=== PATIENT | female | born 1940 | race Caucasian/White ===

== ENCOUNTER → 2018-09-16 | Outpatient (CLI) | payer MEDICARE ==
[2017-12-05 11:00] VITALS: BP 178/65
[~2018-09-16] MED LIST: ACET325T16 PO; ALBU2.5V5 NEB; ASPI-482 PO; ASPI325T11 PO; ATOR20TA58 PO; BUDE3CAP15 PO; Bisacodyl PR; CA C1TAB58 PO; CARV3.1210 PO; CHOL200074 PO; CHROMIUM PICO200 MCG PO; CLOP75TA PO; COLE1TAB2 PO; DIPH25TA26 PO; ESZO3TAB28 PO; FAMO20TA5 PO; FURO40TA4 PO; HYDR-2145 PO; HYDR50TA6 PO; LOSA100T14 PO; METO-239 PO; METO25TA4 PO; MULT1TAB52 PO; OMEG1CAP38 PO; OXYC1TAB7 PO; POLY17PO29 PO; PRAS10TA9 PO; PRAV40TA2 PO; REGADENOSON 0.4 MG/5 ML DISP.SYRIN. IV ONE; SENN-22 PO; TRAZ-118 PO; TURM500C7 PO; TURM538C PO; VITA150T PO; [UNRECOGNIZED DRUG - CODE] PO
--- NOTE | 2018-09-16 12:49 | RAD ---
MR#: [id number] Date of Study: 09/16/2018 Ordering Physician: ERMELINDA HUI, Referring Physician: ANGELINA CHOI Tech: BEBE Hardy APPROVED REPORT Test Type: Pharmacological Stress Nurse/Tech: Belinda Barnett R.N. Test Indications: CABG, Cardiac History: CABG, stents, Medications: See Electronic Medical Record Medical History: See Electronic Medical Record Resting ECG: SB Resting Heart Rate: 50 bpm Resting Blood Pressure: 151/60mmHg Pretest Chest Pain: No chest pain Nurse/Tech Notes S1S2, lungs CTA Consent: The procedure was explained to the patient in lay terms. Informed consent was witnessed. Torsten eout was entered into [employer]. History and Stress Test performed by BEBE Hardy Pharm. Details Pharmacologic stress testing was performed using 0.4mg per 5ml of regadenoson given intravenously ove r 7-10 seconds. Stress Symptoms slight SOB, h/a POST EXERCISE Reason for Termination: Infusion complete Max HR: 71 bpm Max Blood Pressure: 148/45mmHg Blood Pressure response to exercise: Normal blood pressure response during stress. Heart Rate response to exercise: wnl Chest Pain: No. Arrhythmia: No. ST Change: No. INTERPRETATION Stress EKG Conclusion: No evidence of stress induced EKG changes. Imaging Protocol IMAGE PROTOCOL: Rest Tc-99m/stress Tc-99m 1 day Rest: Stress: Viability: Radiopharm.Tc99m EeznzlzmwOa38v Sestamibi Wlir79cYl 32mCi Duration 13.5min. 13.5min. Img Date 09/16/2018 09/16/2018 Inj-Img Anjm29pvg. 60min. Rest Admin Site:IV - Left WristAdministrator:BEBE Hardy Stress Admin Site: IV - Left WristAdministrator: JOHN Carrizales, ARRT (R)(N) STRESS DATA End Diast. Vol.79.0mlLVEDV index BSA44.0ml End Syst. Vol.20.0mlLVESV index BSA11.0ml Myocardial Zfyk850.0gEject. Lzgfsxds74.0% Stress Scores Regional WT0.00Summed WT3.00 Regional WM0.00Summed WM1.00 The rest and stress images show normal perfusion, normal contraction and thickening. LV Perf. Quant 17 Seg. SSS2.00 17 Seg. SRS0.00 17 Seg. SDS2.00 Stress Defect Extent (% LAD)1.30Rest Defect Extent (% LAD)0.00Rev. Defect Extent (% LAD)1.30 Stress Defect Extent (% LCX) 0.00Rest Defect Extent (% LCX)0.00Rev. Defect Extent (% LCX)0.00 Stress Defect Extent (% RCA)0.00Rest Defect Extent (% RCA)0.00Rev. Defect Extent (% RCA)0.00 Stress Defect Extent (% MARIAMA)3.70Rest Defect Extent (% MARIAMA)0.00Rev. Defect Extent (% MARIAMA)3.70 Other Information Quality:Good Risk Assessment: Low Risk Conclusion 1. No evidence of EKG changes with stress testing. 2. Normal perfusion at stress/rest. 3. Low risk study. 4. EF > 60%. Signed by : Junior Jenkins, Electronically Approved : 09/16/2018 12:49:11
== END | disposition home or self-care (01) ==
LOC: NM 09:08
PROVIDERS: ATTEND Internal Medicine Cardiovascular Disease
DX: Z95.1 Presence of aortocoronary bypass graft (principal); Z95.5 Presence of coronary angioplasty implant and graft
CPT/HCPCS: 78452; 93017; A9500; J2785

== ENCOUNTER 2019-10-25 14:42 | Inpatient (IN) | payer MEDICARE ==
[~2019-10-25] VITALS: Ht 162.6 cm; Wt 76.1 kg
[~2019-10-25 14:42] MED LIST changes: +ACET-2061 PO; -ACET325T16 PO; +MULT-445 PO; -MULT1TAB52 PO; -REGADENOSON 0.4 MG/5 ML DISP.SYRIN. IV ONE
[2019-10-25] MEDS ORDERED: MECLIZINE HCL 12.5 MG TABLET. PO ONE (15:00)
[2019-10-25] MEDS ORDERED: FAMOTIDINE 20 MG/2 ML VIAL IVP ONE (15:00)
[2019-10-25] MEDS ORDERED: IV NORMAL SALINE 1000ML BAG 1,000 ML IV ONE ×2 (15:00→17:30)
[2019-10-25] MEDS ORDERED: ONDANSETRON PF 4 MG/2 ML VIAL. IVP ONE (15:00)
[2019-10-25] MEDS ORDERED: MORPHINE SULFATE 4 MG/ML VIAL. IV/SQ PRN (15:00)
[2019-10-25 15:09] LABS: BASO # 0.1 x10^3/uL (0.0-0.2); BASO % 1 % (0-3); EOS % 0 % (0-3); HEMATOCRIT 38.1 % (36.0-47.0); LYMPH # 1.3 x10^3/uL (1.0-4.8); LYMPH % 12 % (24-48); MEAN CORPUSCULAR HEMOGLOBIN 31 pg (25-35); MEAN CORPUSCULAR HGB CONC 34 g/dL (31-37); MEAN CORPUSCULAR VOLUME 90 fL (79-100); MONO # 0.7 x10^3/uL (0.0-1.1); MONO % 7 % (0-9); NEUT # 8.7 x10^3/uL (1.8-7.7); NEUT % 80 % (31-73); PLATELET COUNT 275 x10^3/uL (140-400); RED BLOOD COUNT 4.23 x10^6/uL (3.50-5.40); RED CELL DISTRIBUTION WIDTH 13.8 % (11.5-14.5); WHITE BLOOD COUNT 10.9 x10^3/uL (4.0-11.0)
[2019-10-25 15:20] LABS: CALCIUM 9.1 mg/dL (8.5-10.1); CREATININE 0.9 mg/dL (0.6-1.0); GFR 60.6
[2019-10-25 15:27] LABS: ALBUMIN 3.6 g/dL (3.4-5.0); MAGNESIUM 1.8 mg/dL (1.8-2.4); TOTAL BILIRUBIN 0.8 mg/dL (0.2-1.0); TOTAL PROTEIN 7.1 g/dL (6.4-8.2)
--- NOTE | 2019-10-25 15:29 | RAD ---
PORTABLE CHEST 1V 10/25/2019 2:58 PM INDICATION: Dizziness COMPARISON: 12/01/2017 TECHNIQUE: Portable frontal view of the chest is provided. FINDINGS: The cardiomediastinal silhouette is within normal limits. Lungs are clear. Median sternotomy changes are present. There are no significant pleural effusions. There is no pulmonary vascular congestion. No pneumothorax. No suspicious osseous abnormality. IMPRESSION: There is no acute cardiopulmonary process. Electronically signed by: Koki Parham MD (10/25/2019 3:25 PM) TEGAN
[2019-10-25 15:37] LABS: CREATINE KINASE 45 U/L (26-192)
--- NOTE | 2019-10-25 15:38 | PHYS DOC ---
Past Medical History Past Medical History: Alcoholism, CAD, High Cholesterol, Hypertension Past Surgical History: Angioplasty, Coronary Bypass Surgery, Hysterectomy, Knee Replacement Smoking Status: Former Smoker Alcohol Use: None Drug Use: None General Adult EDM: Chief Complaint: NAUSEA/VOMITING/DIARRHA HPI: HPI: Patient is a 78 year old female with a history of hypertension, high cholesterol, CAD with triple bypass couple years ago, who presents the ED today with multiple complaints. Patient reports she was working on her yard when she developed dizziness then nausea and vomiting. Patient denies any diarrhea. Denies any significant abdominal pain. Reports symptoms are worse on change of position. Denies anything specifically relieving the symptoms. She states she tried taking 2 tablets of nitroglycerin for the dizziness with no relief. She states she developed a mild frontal headache after taking the nitroglycerin. Denies any chest pain or shortness of breath. Review of Systems: Review of Systems: Constitutional: Denies fever or chills. [] Eyes: Denies change in visual acuity. [] HENT: Denies nasal congestion or sore throat. [] Respiratory: Denies cough or shortness of breath. [] Cardiovascular: Denies chest pain or edema. [] GI: Reports slight abdominal pain with nausea and vomiting, denies bloody sto ols or diarrhea. [] : Denies dysuria. [] Musculoskeletal: Denies back pain or joint pain. [] Integument: Denies rash. [] Neurologic: Reports dizziness. Denies headache, focal weakness or sensory changes. [] Psychiatric: Denies depression or anxiety. [] Heart Score: Risk Factors: Risk Factors: DM, Current or recent (<one month) smoker, HTN, HLP, family history of CAD, obesity. Risk Scores: Score 0 - 3: 2.5% MACE over next 6 weeks - Discharge Home Score 4 - 6: 20.3% MACE over next 6 weeks - Admit for Clinical Observation Score 7 - 10: 72.7% MACE over next 6 weeks - Early Invasive Strategies Current Medications: Current Medications Medications (Trade) Dose Ordered Sig/Deysi Start Time Stop Time Status Last Admin Dose Admin Famotidine (Pepcid Vial) 20 mg 1X ONCE 10/25/19 15:00 10/25/19 15:07 DC 10/25/19 15:24 20 MG Meclizine HCl (Antivert) 12.5 mg 1X ONCE 10/25/19 15:00 10/25/19 15:06 DC 10/25/19 15:24 12.5 MG Morphine Sulfate (Morphine Sulfate) 4 mg PRN Q15MIN PRN 10/25/19 15:00 10/26/19 14:59 10/25/19 15:24 4 MG Ondansetron HCl (Zofran) 4 mg 1X ONCE 10/25/19 15:00 10/25/19 15:06 DC Sodium Chloride 1,000 ml @ 1,000 mls/hr 1X ONCE 10/25/19 15:00 10/25/19 15:59 10/25/19 15:25 1,000 MLS/HR Allergies: Allergies: Allergies Coded Allergies Type Severity Reaction Last Updated Verified lactose Allergy Intermediate 12/02/17 Yes nickel Allergy Intermediate 12/02/17 Yes Physical Exam: PE: Constitutional: Well developed, well nourished, no acute distress, non-toxic appearance. [] HENT: Normocephalic, atraumatic, bilateral external ears normal, oropharynx moist, no oral exudates, nose normal. [] Eyes: PERRLA, EOMI, conjunctiva normal, no discharge. [] Neck: Normal range of motion, no tenderness, supple, no stridor. [] Cardiovascular:Heart rate regular rhythm, no murmur [] Lungs & Thorax: Bilateral breath sounds clear to auscultation [] Abdomen: Bowel sounds normal, soft, no tenderness, no masses, no pulsatile masses. [] Skin: Warm, dry, no erythema, no rash. [] Back: No tenderness, no CVA tenderness. [] Extremities: No tenderness, no cyanosis, no clubbing, ROM intact, no edema. [] Neurologic: Alert and oriented X 3, normal motor function, normal sensory function, no focal deficits noted. [] Psychologic: Affect normal, judgement normal, mood normal. [] Current Patient Data: Labs: Laboratory Tests Test 10/25/19 14:50 White Blood Count 10.9 x10^3/uL (4.0-11.0) Red Blood Count 4.23 x10^6/uL (3.50-5.40) Hemoglobin 13.0 g/dL (12.0-15.5) Hematocrit 38.1 % (36.0-47.0) Mean Corpuscular Volume 90 fL (79-100) Mean Corpuscular Hemoglobin 31 pg (25-35) Mean Corpuscular Hemoglobin Concent 34 g/dL (31-37) Red Cell Distribution Width 13.8 % (11.5-14.5) Platelet Count 275 x10^3/uL (140-400) Neutrophils (%) (Auto) 80 % (31-73) H Lymphocytes (%) (Auto) 12 % (24-48) L Monocytes (%) (Auto) 7 % (0-9) Eosinophils (%) (Auto) 0 % (0-3) Basophils (%) (Auto) 1 % (0-3) Neutrophils # (Auto) 8.7 x10^3/uL (1.8-7.7) H Lymphocytes # (Auto) 1.3 x10^3/uL (1.0-4.8) Monocytes # (Auto) 0.7 x10^3/uL (0.0-1.1) Eosinophils # (Auto) 0.0 x10^3/uL (0.0-0.7) Basophils # (Auto) 0.1 x10^3/uL (0.0-0.2) Sodium Level 139 mmol/L (136-145) Potassium Level 4.0 mmol/L (3.5-5.1) Chloride Level 101 mmol/L (98-107) Carbon Dioxide Level 27 mmol/L (21-32) Anion Gap 11 (6-14) Blood Urea Nitrogen 13 mg/dL (7-20) Creatinine 0.9 mg/dL (0.6-1.0) Estimated GFR (Cockcroft-Gault) 60.6 BUN/Creatinine Ratio 14 (6-20) Glucose Level 153 mg/dL (70-99) H Calcium Level 9.1 mg/dL (8.5-10.1) Magnesium Level 1.8 mg/dL (1.8-2.4) Total Bilirubin 0.8 mg/dL (0.2-1.0) Aspartate Amino Transferase (AST) 23 U/L (15-37) Alanine Aminotransferase (ALT) 20 U/L (14-59) Alkaline Phosphatase 80 U/L (46-116) Troponin I Quantitative < 0.017 ng/mL (0.000-0.055) Total Protein 7.1 g/dL (6.4-8.2) Albumin 3.6 g/dL (3.4-5.0) Albumin/Globulin Ratio 1.0 (1.0-1.7) Lipase 92 U/L (73-393) Laboratory Tests 10/25/19 14:50 Laboratory Tests 10/25/19 14:50 Vital Signs: Vital Signs Date Time Temp Pulse Resp B/P (MAP) Pulse Ox O2 Delivery O2 Flow Rate FiO2 10/25/19 15:24 16 98 Room Air 10/25/19 14:45 97.8 67 219/95 (136) 97.8 EKG: EKG: [] Radiology/Procedures: Radiology/Procedures: []PROCEDURE: PORTABLE CHEST 1V PORTABLE CHEST 1V 10/25/2019 2:58 PM INDICATION: Dizziness COMPARISON: 12/01/2017 TECHNIQUE: Portable frontal view of the chest is provided. FINDINGS: The cardiomediastinal silhouette is within normal limits. Lungs are clear. Median sternotomy changes are present. There are no significant pleural effusions. There is no pulmonary vascular congestion. No pneumothorax. No suspicious osseous abnormality. IMPRESSION: There is no acute cardiopulmonary process. Electronically signed by: Shankar Richards MD (10/25/2019 3:25 PM) [facility] DICTATED and SIGNED BY: SHANKAR RICHARDS MD DATE: 10/25/19 1525 PROCEDURE: CT HEAD WO CONTRAST CT head without contrast dated 2019. Comparison made to 12/01/2017. CLINICAL INDICATION: Dizziness. TECHNIQUE: Contiguous axial imaging the head was performed from skull base to vertex. No contrast administered. One or more of the following individualized dose reduction techniques were utilized for this examination: 1. Automated exposure control 2. Adjustment of the mA and/or kV according to patient size 3. Use of iterative reconstruction technique. FINDINGS: Ventricles and sulci are mildly prominent for age. No midline shift or mass effect. Mild patchy low density in the deep/subcortical periventricular white matter. No hemorrhage or extra-axial collection. Posterior fossa and brainstem are unremarkable. Visualized paranasal sinuses and mastoid air cells are clear. No apparent calvarial abnormality. IMPRESSION: 1. No evidence of acute intracranial hemorrhage or mass. 2. Mild chronic small vessel ischemic changes and atrophy. Electronically signed by: Rey Wilkinson MD (10/25/2019 3:42 PM) [id number] DICTATED and SIGNED BY: REY WILKINSON MD DATE: 10/25/19 1542 Course & Med Decision Making: Course & Med Decision Making Pertinent Labs and Imaging studies reviewed. (See chart for details) This is a 78-year-old male patient presenting to the ED today with complaints of dizziness, nausea and vomiting. Symptoms began while doing yard work. She took nitroglycerin for her symptoms then developed a headache. Denies any chest pain. Patient's labs are negative for any acute findings including cardiac work-up. CT of the head as well as chest x-ray are negative. Patient was given 8 mg of Zofran via EMS. Given IV fluids meclizine in the ED. Has continued to complain about dizziness especially on position changes. Spoke with Dr. Dejesus who accepted patient for admission Carissa Disclaimer: Carissa Disclaimer: This electronic medical record was generated, in whole or in part, using a voice recognition dictation system. Departure Departure Impression: Primary Impression: Dizziness Additional Impressions: Nausea and vomiting Qualified Codes: R11.2 - Nausea with vomiting, unspecified Head ache Qualified Codes: R51 - Headache Referrals: SHAWN DEJESUS MD (PCP) Justicifation of Admission Dx: Justifications for Admission: Justification of Admission Dx: Yes CHF: Hemodynamic Instability XENIA JASSO APRN Oct 25, 2019 15:38
--- NOTE | 2019-10-25 15:45 | RAD ---
CT head without contrast dated 2019. Comparison made to 12/01/2017. CLINICAL INDICATION: Dizziness. TECHNIQUE: Contiguous axial imaging the head was performed from skull base to vertex. No contrast administered. One or more of the following individualized dose reduction techniques were utilized for this examination: 1. Automated exposure control 2. Adjustment of the mA and/or kV according to patient size 3. Use of iterative reconstruction technique. FINDINGS: Ventricles and sulci are mildly prominent for age. No midline shift or mass effect. Mild patchy low density in the deep/subcortical periventricular white matter. No hemorrhage or extra-axial collection. Posterior fossa and brainstem are unremarkable. Visualized paranasal sinuses and mastoid air cells are clear. No apparent calvarial abnormality. IMPRESSION: 1. No evidence of acute intracranial hemorrhage or mass. 2. Mild chronic small vessel ischemic changes and atrophy. Electronically signed by: Rey Wilkinson MD (10/25/2019 3:42 PM) [id number]
[2019-10-25 16:50] LABS: BILIRUBIN,URINE NEGATIVE (NEG); COLOR,URINE YELLOW; NITRITE,URINE NEGATIVE (NEG); PROTEIN,URINE NEGATIVE (NEG-TRACE); UROBILINOGEN,URINE 0.2 mg/dL (0.2 mg/dL)
[2019-10-25 16:53] LABS: CLARITY,URINE HAZY
[2019-10-25 16:55] LABS: AMPHETAMINE/METHAMPHETAMINE NEG (NEG); BARBITURATES NEG (NEG); BENZODIAZEPINES NEG (NEG); CANNABINOIDS NEG (NEG); COCAINE NEG (NEG); METHADONE NEG (NEG); OPIATES POS (NEG); PHENCYCLIDINE NEG (NEG)
[2019-10-25 16:57] LABS: SQUAMOUS EPITHELIAL CELL,UR MANY /LPF
[2019-10-25 16:58] LABS: BACTERIA,URINE MANY /HPF (0-FEW)
[2019-10-25 16:59] LABS: RBC,URINE 0 /HPF (0-2); WBC,URINE OCC /HPF (0-4)
[2019-10-25] MEDS ORDERED: LABETALOL 20 MG/4 ML DISP.SYRIN. IVP ONE (17:30)
[2019-10-25] MEDS ORDERED: ONDANSETRON PF 4 MG/2 ML VIAL. IV PRN (17:30)
[2019-10-25] MEDS ORDERED: cloNIDine HCL 0.1 MG TABLET PO PRN (17:30)
[2019-10-25] MEDS ORDERED: MORPHINE SULFATE 2 MG/ML VIAL. IV PRN (17:30)
[2019-10-25] MEDS ORDERED: ACETAMINOPHEN 325 MG TABLET. PO PRN ×2 (17:30→21:30)
[2019-10-25 19:36] VITALS: BP 190/116
[2019-10-25] MEDS ORDERED: CYCL10TA2 PO (20:43)
[2019-10-25] MEDS ORDERED: NITR0.4T22 SL (20:43)
[2019-10-25] MEDS ORDERED: ISOS30TA4 PO (20:43)
[2019-10-25] MEDS ORDERED: traZODone 50 MG TABLET. PO SCH (21:30)
[2019-10-25] MEDS ORDERED: ZOLPIDEM 5 MG TABLET. PO PRN (21:30)
[2019-10-25] MEDS ORDERED: CYCLOBENZAPRINE 10 MG TABLET. PO PRN (21:30)
[2019-10-25] MEDS ORDERED: NITROGLYCERIN SUBLINGUAL 0.4 MG BOTTLE OF 25. SL PRN (21:30)
[2019-10-25 22:57] VITALS: BP 157/55
[2019-10-26 03:07] VITALS: BP 162/59
[2019-10-26 05:44] LABS: BASO % 1 % (0-3); EOS # 0.1 x10^3/uL (0.0-0.7); EOS % 1 % (0-3); HEMATOCRIT 33.4 % (36.0-47.0); HEMOGLOBIN 11.4 g/dL (12.0-15.5); LYMPH # 1.6 x10^3/uL (1.0-4.8); LYMPH % 25 % (24-48); MEAN CORPUSCULAR HEMOGLOBIN 31 pg (25-35); MEAN CORPUSCULAR HGB CONC 34 g/dL (31-37); MEAN CORPUSCULAR VOLUME 91 fL (79-100); MONO % 16 % (0-9); NEUT # 3.7 x10^3/uL (1.8-7.7); NEUT % 58 % (31-73); PLATELET COUNT 213 x10^3/uL (140-400); RED BLOOD COUNT 3.68 x10^6/uL (3.50-5.40); RED CELL DISTRIBUTION WIDTH 13.6 % (11.5-14.5); WHITE BLOOD COUNT 6.5 x10^3/uL (4.0-11.0)
[2019-10-26 06:05] LABS: CALCIUM 8.2 mg/dL (8.5-10.1); GFR 53.6; POTASSIUM 3.4 mmol/L (3.5-5.1)
[2019-10-26 07:00] VITALS: BP 164/51
[2019-10-26] MEDS ORDERED: CARVEDILOL 3.125 MG TABLET. PO SCH (08:00)
[2019-10-26] MEDS ORDERED: MULTIVITAMIN with MINERAL TABLET. PO SCH (09:00)
[2019-10-26] MEDS ORDERED: OMEGA-3 FATTY ACIDS/FISH OIL 1,000 MG CAPSULE. PO SCH (09:00)
[2019-10-26] MEDS ORDERED: ISOSORBIDE MONONITRATE ER 30 MG TAB.ER.24H PO SCH (09:00)
--- NOTE | 2019-10-26 09:41 | PDOC ---
Provider Note Provider Note [id number] Justicifation of Admission Dx: Justifications for Admission: Justification of Admission Dx: Yes CHF: Hemodynamic Instability EVER KHANNA MD Oct 26, 2019 09:41
--- NOTE | 2019-10-26 09:47 | SSS ---
ADMIT DATE: 10/26/2019 TWENTY-THREE HOUR SUMMARY HOSPITAL SUMMARY: The patient has developed dizziness, weakness, nausea and tachycardia after doing a bunch of yard work and drinking a large amount of caffeine. CT scan, laboratory study, chest x-ray were all clear. Her symptoms largely resolved with just IV fluids and rest and she is comfortable to be followed as an outpatient at this point. FINAL DIAGNOSES: 1. Motion sickness. 2. Caffeine toxicity. OPERATIONS, PROCEDURES, COMPLICATIONS AND CONSULTATIONS: None. DISPOSITION: She will be discharged on the same home medications. Limited activity today. No more excesses of caffeine as she drank a large [employer] Coffee with 3 shots of espresso added to it yesterday. Office followup as needed with Dr. Dejesus. PROGNOSIS: Good. EVER KHANNA MD DR: BECKY/mario JOB#: [id number] / [id number]
[2019-10-26 10:56] VITALS: BP 102/56
--- NOTE | 2019-10-26 12:37 | NUR ---
Discharge Note: LUZ MAYNARD [facility] Discharge instructions and discharge home medications reviewed with Patient and a copy given. All questions have been answered and understanding verbalized. Instructions and handouts were given. Discontinued lines and drains. Patient discharged to home self care.
--- NOTE | 2019-10-27 08:03 | EKG ---
[facility] [address] [place] [address] Test Date: 2019-10-25 Test Time: 16:15:13 Pat Name: IMER MAYNARD Department: Room: Gender: F Csr Retail: : 1940 Requested By: XENIA JASSO Order Number: [id number] Reading MD: Measurements Intervals Johnson Rate: 70 P: 46 ID: [id number] QRS: -3 QRSD: 98 T: 0 QT: 492 QTc: 535 Interpretive Statements SINUS RHYTHM LEFTWARD AXIS PROLONGED QT NO SPECIFIC ECG ABNORMALITIES RI6.01 No previous ECG available for comparison
== END 2019-10-26 12:00 | disposition home or self-care (01) | DRG 149 ==
LOC: ER 14:42 → 2 SOUTH 17:12
PROVIDERS: ADMIT Family Medicine; ATTEND Family Medicine
DX: T75.3XXA Motion sickness, initial encounter (principal); T62.8X1A Toxic effect of other specified noxious substances eaten as food, accidental (unintentional), initial encounter; E78.00 Pure hypercholesterolemia, unspecified; I11.0 Hypertensive heart disease with heart failure; I25.10 Atherosclerotic heart disease of native coronary artery without angina pectoris; I50.9 Heart failure, unspecified; Z87.891 Personal history of nicotine dependence; Z90.710 Acquired absence of both cervix and uterus; Z96.659 Presence of unspecified artificial knee joint; F10.20 Alcohol dependence, uncomplicated; Z88.8 Allergy status to other drugs, medicaments and biological substances; Z79.899 Other long term (current) drug therapy; Z95.1 Presence of aortocoronary bypass graft; R00.0 Tachycardia, unspecified; Y92.89 Other specified places as the place of occurrence of the external cause; Y93.89 Activity, other specified; Y99.8 Other external cause status
CPT/HCPCS: 36415; 70450; 71045; 80048; 80053; 80307; 81001; 82553; 83690; 83735; 83880; 84443; 84484; 85025; 87086; 93005; 96361; 96374; 96375; G0480; J2270; J2405; J3490; J7030; 99285-25; G0378; J8597

== ENCOUNTER 2019-12-09 10:59 | Emergency (ER) | payer MEDICARE ==
[~2019-12-09] VITALS: Ht 162.6 cm; Wt 71.8 kg
[~2019-12-09 10:59] MED LIST changes: +CYCL10TA2 PO; +ISOS30TA4 PO; +NITR0.4T22 SL
[2019-12-09 12:06] LABS: BASO # 0.1 x10^3/uL (0.0-0.2); BASO % 1 % (0-3); EOS % 1 % (0-3); HEMATOCRIT 35.5 % (36.0-47.0); HEMOGLOBIN 12.6 g/dL (12.0-15.5); LYMPH # 1.8 x10^3/uL (1.0-4.8); LYMPH % 22 % (24-48); MEAN CORPUSCULAR HEMOGLOBIN 32 pg (25-35); MEAN CORPUSCULAR HGB CONC 35 g/dL (31-37); MEAN CORPUSCULAR VOLUME 90 fL (79-100); MONO # 0.9 x10^3/uL (0.0-1.1); MONO % 11 % (0-9); NEUT # 5.5 x10^3/uL (1.8-7.7); NEUT % 66 % (31-73); PLATELET COUNT 285 x10^3/uL (140-400); RED BLOOD COUNT 3.93 x10^6/uL (3.50-5.40); RED CELL DISTRIBUTION WIDTH 14.3 % (11.5-14.5); WHITE BLOOD COUNT 8.3 x10^3/uL (4.0-11.0)
[2019-12-09 12:13] LABS: CREATININE 0.9 mg/dL (0.6-1.0); GFR 60.4; POTASSIUM 3.3 mmol/L (3.5-5.1)
[2019-12-09 12:19] LABS: ALBUMIN 3.3 g/dL (3.4-5.0); ALBUMIN/GLOBULIN RATIO 0.9 (1.0-1.7); MAGNESIUM 2.1 mg/dL (1.8-2.4); TOTAL BILIRUBIN 0.6 mg/dL (0.2-1.0); TOTAL PROTEIN 6.8 g/dL (6.4-8.2)
[2019-12-09] MEDS ORDERED: IOHEXOL 300 MG/ML 100ML VIAL. IV ONE ×2 (12:45)
[2019-12-09] MEDS ORDERED: CONTRAST GIVEN. MC PRN (13:00)
--- NOTE | 2019-12-09 13:30 | RAD ---
Examination: CT ABD PELV W/ IV CONTRST ONLY History: abdominal pain, nausea, vomiting Comparison/Correlation: None Findings: Axial images of the abdomen and pelvis were obtained following IV contrast. Sagittal and coronal reformatted images were provided. Visualized lung bases are unremarkable. Sternal wires are present. Liver, spleen, pancreas, and adrenal glands are normal. Gallbladder fossa is unremarkable. Kidneys are unremarkable. Diverticulosis is present. No inflammatory changes about the cecum identified. Appendix is normal. No enlarged abdominal or pelvic lymph nodes. Significant calcification involving the abdominal aorta and iliac arteries. The urinary bladder is unremarkable. Surgery noted. L2-3 disc space narrowing is present with concentric disc bulge. Mild anterolisthesis of L4 over L5. Impression: Diverticulosis. No obstruction. No inflammatory process. PQRS Compliance Statement: One or more of the following individualized dose reduction techniques were utilized for this examination: 1. Automated exposure control 2. Adjustment of the mA and/or kV according to patient size 3. Use of iterative reconstruction technique Electronically signed by: Robin Ritchie MD (12/09/2019 1:28 PM) [id number]
[2019-12-09] MEDS ORDERED: POTASSIUM CHLORIDE 10 MEQ TABLET.ER. PO ONE (13:45)
[2019-12-09 13:58] LABS: BILIRUBIN,URINE NEGATIVE (NEG); CLARITY,URINE CLEAR; COLOR,URINE YELLOW; NITRITE,URINE POSITIVE (NEG); PROTEIN,URINE NEGATIVE (NEG-TRACE); UROBILINOGEN,URINE 0.2 mg/dL (0.2 mg/dL)
[2019-12-09 14:02] LABS: BACTERIA,URINE MANY /HPF (0-FEW); RBC,URINE 0 /HPF (0-2); SQUAMOUS EPITHELIAL CELL,UR FEW /LPF
[2019-12-09] MEDS ORDERED: cefTRIAXone IV Push 1 GM VIAL. IVP ONE (14:15)
[2019-12-09 15:00] VITALS: BP 159/70
[2019-12-09] MEDS ORDERED: SUCR1TAB35 PO (15:27)
[2019-12-09] MEDS ORDERED: NITR100C62 PO (15:27)
[2019-12-09] MEDS ORDERED: OMEP20TA63 PO (15:27)
--- NOTE | 2019-12-09 15:28 | PHYS DOC ---
Past Medical History Past Medical History: Alcoholism, CAD, High Cholesterol, Hypertension Past Surgical History: Angioplasty, Coronary Bypass Surgery, Hysterectomy, Knee Replacement Smoking Status: Former Smoker Alcohol Use: Sober Drug Use: None General Adult EDM: Chief Complaint: NAUSEA/VOMITING/DIARRHA HPI: HPI: Patient is a 79 year old female who presented with abdominal pain, nausea for almost a week. Patient said whenever she tried to eat, she fell like she burped it up at night. She went to see her Chiropractor the other day who told her that she may have sliding hiatal hernia. Patient denied any chest pain, no shortness of air, no cough, no fever, No diarrhea. Review of Systems: Review of Systems: Constitutional: Denies fever or chills. [] Eyes: Denies change in visual acuity. [] HENT: Denies nasal congestion or sore throat. [] Respiratory: Denies cough or shortness of breath. [] Cardiovascular: Denies chest pain or edema. [] GI: Positive for abdominal pain, nausea,no vomiting, bloody stools or diarrhea. [] : Denies dysuria. [] Musculoskeletal: Denies back pain or joint pain. [] Integument: Denies rash. [] Neurologic: Denies headache, focal weakness or sensory changes. [] Endocrine: Denies polyuria or polydipsia. [] Lymphatic: Denies swollen glands. [] Psychiatric: Denies depression or anxiety. [] Heart Score: Risk Factors: Risk Factors: DM, Current or recent (<one month) smoker, HTN, HLP, family history of CAD, obesity. Risk Scores: Score 0 - 3: 2.5% MACE over next 6 weeks - Discharge Home Score 4 - 6: 20.3% MACE over next 6 weeks - Admit for Clinical Observation Score 7 - 10: 72.7% MACE over next 6 weeks - Early Invasive Strategies Current Medications: Current Medications Medications (Trade) Dose Ordered Sig/Deysi Start Time Stop Time Status Last Admin Dose Admin Ceftriaxone Sodium (Rocephin) 1 gm 1X ONCE 12/09/19 14:15 12/09/19 14:16 DC 12/09/19 14:46 1 GM Info (CONTRAST GIVEN -- Rx MONITORING) 1 each PRN DAILY PRN 12/09/19 13:00 12/11/19 12:59 Iohexol (Omnipaque 300 Mg/ml) 75 ml 1X ONCE 12/09/19 12:45 12/09/19 12:57 DC 12/09/19 13:08 75 ML Potassium Chloride (Klor-Con) 40 meq 1X ONCE 12/09/19 13:45 12/09/19 13:46 DC 12/09/19 14:46 40 MEQ Allergies: Allergies: Allergies Coded Allergies Type Severity Reaction Last Updated Verified lactose Allergy Intermediate 12/02/17 Yes nickel Allergy Intermediate 12/02/17 Yes Physical Exam: PE: Constitutional: Well developed, well nourished, no acute distress, non-toxic appearance. [] HENT: Normocephalic, atraumatic, bilateral external ears normal, oropharynx moist, no oral exudates, nose normal. [] Eyes: PERRLA, EOMI, conjunctiva normal, no discharge. [] Neck: Normal range of motion, no tenderness, supple, no stridor. [] Cardiovascular:Heart rate regular rhythm, no murmur [] Lungs & Thorax: Bilateral breath sounds clear to auscultation [] Abdomen: Bowel sounds normal, soft, no tenderness, no masses, no pulsatile masses. [] Skin: Warm, dry, no erythema, no rash. [] Back: No tenderness, no CVA tenderness. [] Extremities: No tenderness, no cyanosis, no clubbing, ROM intact, no edema. [] Neurologic: Alert and oriented X 3, normal motor function, normal sensory function, no focal deficits noted. [] Psychologic: Affect normal, judgement normal, mood normal. [] Current Patient Data: Labs: Laboratory Tests Test 12/09/19 11:30 12/09/19 13:23 White Blood Count 8.3 x10^3/uL (4.0-11.0) Red Blood Count 3.93 x10^6/uL (3.50-5.40) Hemoglobin 12.6 g/dL (12.0-15.5) Hematocrit 35.5 % (36.0-47.0) L Mean Corpuscular Volume 90 fL (79-100) Mean Corpuscular Hemoglobin 32 pg (25-35) Mean Corpuscular Hemoglobin Concent 35 g/dL (31-37) Red Cell Distribution Width 14.3 % (11.5-14.5) Platelet Count 285 x10^3/uL (140-400) Neutrophils (%) (Auto) 66 % (31-73) Lymphocytes (%) (Auto) 22 % (24-48) L Monocytes (%) (Auto) 11 % (0-9) H Eosinophils (%) (Auto) 1 % (0-3) Basophils (%) (Auto) 1 % (0-3) Neutrophils # (Auto) 5.5 x10^3/uL (1.8-7.7) Lymphocytes # (Auto) 1.8 x10^3/uL (1.0-4.8) Monocytes # (Auto) 0.9 x10^3/uL (0.0-1.1) Eosinophils # (Auto) 0.0 x10^3/uL (0.0-0.7) Basophils # (Auto) 0.1 x10^3/uL (0.0-0.2) Sodium Level 134 mmol/L (136-145) L Potassium Level 3.3 mmol/L (3.5-5.1) L Chloride Level 100 mmol/L (98-107) Carbon Dioxide Level 26 mmol/L (21-32) Anion Gap 8 (6-14) Blood Urea Nitrogen 24 mg/dL (7-20) H Creatinine 0.9 mg/dL (0.6-1.0) Estimated GFR (Cockcroft-Gault) 60.4 BUN/Creatinine Ratio 27 (6-20) H Glucose Level 96 mg/dL (70-99) Calcium Level 9.0 mg/dL (8.5-10.1) Magnesium Level 2.1 mg/dL (1.8-2.4) Total Bilirubin 0.6 mg/dL (0.2-1.0) Aspartate Amino Transferase (AST) 19 U/L (15-37) Alanine Aminotransferase (ALT) 16 U/L (14-59) Alkaline Phosphatase 50 U/L (46-116) Total Protein 6.8 g/dL (6.4-8.2) Albumin 3.3 g/dL (3.4-5.0) L Albumin/Globulin Ratio 0.9 (1.0-1.7) L Lipase 90 U/L (73-393) Urine Collection Type Unknown Urine Color Yellow Urine Clarity Clear Urine pH 6.0 (<5.0-8.0) Urine Specific [place] 1.020 (1.000-1.030) Urine Protein Negative mg/dL (NEG-TRACE) Urine Glucose (UA) Negative mg/dL (NEG) Urine Ketones (Stick) Negative mg/dL (NEG) Urine Blood Negative (NEG) Urine Nitrite Positive (NEG) Urine Bilirubin Negative (NEG) Urine Urobilinogen Dipstick 0.2 mg/dL (0.2 mg/dL) Urine Leukocyte Esterase Moderate (NEG) Urine RBC 0 /HPF (0-2) Urine WBC 1-4 /HPF (0-4) Urine Squamous Epithelial Cells Few /LPF Urine Bacteria Many /HPF (0-FEW) Laboratory Tests 12/09/19 11:30 Laboratory Tests 12/09/19 11:30 Vital Signs: Vital Signs Date Time Temp Pulse Resp B/P (MAP) Pulse Ox O2 Delivery O2 Flow Rate FiO2 12/09/19 15:00 79 159/70 (99) 99 Room Air 12/09/19 11:07 98.2 18 98.2 EKG: EKG: [] Radiology/Procedures: Radiology/Procedures: [facility] [address] [place] [address] IMAGING REPORT Signed PATIENT: IMER MAYNARD ACCOUNT: [id number] : 1940 LOCATION: ER AGE: 79 SEX: F EXAM STATUS: REG ER ORD. PHYSICIAN: ELROY URRUTIA DO REASON: abdominal pain, nausea, vomiting PROCEDURE: CT ABD PELV W/ IV CONTRST ONLY Examination: CT ABD PELV W/ IV CONTRST ONLY History: abdominal pain, nausea, vomiting Comparison/Correlation: None Findings: Axial images of the abdomen and pelvis were obtained following IV contrast. Sagittal and coronal reformatted images were provided. Visualized lung bases are unremarkable. Sternal wires are present. Liver, spleen, pancreas, and adrenal glands are normal. Gallbladder fossa is unremarkable. Kidneys are unremarkable. Diverticulosis is present. No inflammatory changes about the cecum identified. Appendix is normal. No enlarged abdominal or pelvic lymph nodes. Significant calcification involving the abdominal aorta and iliac arteries. The urinary bladder is unremarkable. Surgery noted. L2-3 disc space narrowing is present with concentric disc bulge. Mild anterolisthesis of L4 over L5. Impression: Diverticulosis. No obstruction. No inflammatory process. PQRS Compliance Statement: One or more of the following individualized dose reduction techniques were utilized for this examination: 1. Automated exposure control 2. Adjustment of the mA and/or kV according to patient size 3. Use of iterative reconstruction technique Electronically signed by: Robin Farfan MD (12/09/2019 1:28 PM) [id number] DICTATED and SIGNED BY: ROBIN FARFAN MD DATE: 12/09/19 132 [] Course & Med Decision Making: Course & Med Decision Making Pertinent Labs and Imaging studies reviewed. (See chart for details) [] Dragon Disclaimer: Dragon Disclaimer: This electronic medical record was generated, in whole or in part, using a voice recognition dictation system. Departure Departure Impression: Primary Impression: Gastritis Additional Impression: UTI (urinary tract infection) Disposition: 01 HOME, SELF-CARE Condition: IMPROVED Referrals: SHAWN LEDESMA MD (PCP) please follow up with your family doctor for a referral to GI specialist next week. Patient Instructions: Gastritis, Adult, Urinary Tract Infection Additional Instructions: Thank you for visiting our Emergency Department. We appreciate you trusting us with your care. If any additional problems come up don't hesitate to return to visit us. Please follow up with your primary care provider so they can plan additional care if needed and know about the problem that you had. If symptoms worsen come back to the Emergency Department. Any concerning symptoms that start such as chest pain, shortness of air, weakness or numbness on one side of the body, running high fevers or any other concerning symptoms return to the ER. Scripts Nitrofurantoin Monohyd/M-Cryst (MACROBID 100 MG CAPSULE) 100 Mg Capsule 1 CAP PO BID for 7 Days, #14 CAP 0 Refills Prov: ELROY URRUTIA DO 12/09/19 Omeprazole Magnesium (PRILOSEC OTC) 20 Mg Tablet. 1 TAB PO DAILY for 30 Days, #30 TAB 0 Refills Prov: ELROY URRUTIA DO 12/09/19 Sucralfate (CARAFATE) 1 Gm Tablet 1 TAB PO QID for 14 Days, #56 TAB 0 Refills Prov: ELROY URRUTIA DO 12/09/19 Justicifation of Admission Dx: Justifications for Admission: Justification of Admission Dx: Yes CHF: Hemodynamic Instability ELROY URRUTIA DO Dec 09, 2019 15:28
== END 2019-12-09 15:44 | disposition home or self-care (01) ==
LOC: ER 10:59
DX: N39.0 Urinary tract infection, site not specified (principal); K29.70 Gastritis, unspecified, without bleeding; F10.10 Alcohol abuse, uncomplicated; I11.9 Hypertensive heart disease without heart failure; E78.00 Pure hypercholesterolemia, unspecified; Z90.89 Acquired absence of other organs; Z98.890 Other specified postprocedural states; Z87.891 Personal history of nicotine dependence; Z88.8 Allergy status to other drugs, medicaments and biological substances
CPT/HCPCS: 36415; 74177; 80053; 81001; 83690; 83735; 85025; 87086; 96374; 99285; J0696; Q9967